=== PATIENT | male | born 1955 | race Caucasian/White ===

== ENCOUNTER → 2018-05-23 | Outpatient (CLI) | payer BC, OTHER | LOC: GMAM 11:04 | PROVIDERS: ATTEND Family Medicine | DX: Z12.5 Encounter for screening for malignant neoplasm of prostate (principal) ==

== ENCOUNTER → 2018-06-25 | Outpatient (CLI) | payer BC, OTHER ==
--- NOTE | 2018-06-25 13:30 | CT ---
CT arthrogram left elbow INDICATION: Elbow pain unable to have MRI TECHNIQUE: Helical CT images through the left elbow post arthrogram with multiplanar reformats This exam was performed according to our departmental dose-optimization program, which includes automated exposure control, adjustment of the mA and/or kV according to patient size and/or use of iterative reconstruction technique. FINDINGS: There is advanced osteoarthrosis of the elbow. There is a large sharply circumscribed cystic-appearing lesion in the proximal ulna extending to the subchondral aspect of the olecranon. This extends to the base of the coronoid process. This lesion measures nearly 3 cm in length and approximately 1.5 cm short axis. This is most likely a large degenerative cyst. There is multifocal synovitis/debris and multiple intra-articular bodies indicating secondary synovial osteochondromatosis. There are bodies in the area of the olecranon and coronoid fossa as well as a large body posterior to the radial head. Marginal osteophytes are noted diffusely. Mild reactive synovitis/debris. Undersurface small cleft in the proximal ulnar collateral ligament. No definite complete capsular or ligamentous disruption No acute fracture or dislocation. IMPRESSION: Advanced osteoarthrosis throughout the left elbow with multiple intra-articular bodies and mild reactive synovitis Large cystic lesion in the proximal ulna most likely a degenerative cyst with nonaggressive margins Electronically signed by: Lance Fermin MD 06/25/2018 1:29 PM ACADEMIC PHYSICIAN
--- NOTE | 2018-06-25 19:39 | RAD ---
EXAM DESCRIPTION: ARTHROGRAM ELBOW, LEFT CLINICAL HISTORY: 62 years Male, ELBOW PAIN. Patient could not have MRI due to metal in the optic globe. COMPARISON: Post - arthrogram CT scan of the left elbow. TECHNIQUE: The procedure was explained to the patient with risks and benefits. The patient understood and gave verbal and written consent. 5 cc of nonionic contrast in one syringe; a contrast mixture of 10 cc nonionic contrast, and 10 mL Xylocaine 1% was prepared in a second syringe. Timeout patient ID protocol was performed. The patient's left elbow was placed on the fluoroscopic table in 90 degrees flexion, in neutral rotation with radius superior. The left olecranon process proximal joint margin was localized by fluoroscopy. The overlying skin was marked and prepped with skin cleanser and sterile drape was applied. Xylocaine 1% anesthetic was given sub-cutaneously and intradermally. Under fluoroscopic visualization, a 25-gauge needle was introduced into the joint, in the plane parallel to the table, just proximal to the olecranon process joint margin. A test injection of 2 cc of the contrast only was performed. An additional 4 cc of the contrast mixture was injected. The patient was transferred to the CT suite for helical reconstruction scanning. There were no immediate complications. Image 1 AP image of the left elbow in 90 degrees flexion. Total fluoroscopic time: 1.2 minutes. Dose: Less than 1 Gy-cm2. FINDINGS: Cystic structure in the proximal olecranon of the ulna partially visualized. Irregular contrast covering of the joint surfaces. Possible loose body superior to the radial head. IMPRESSION: Successful, fluoroscopic-guided arthrogram of the left elbow prior CT scan of the left elbow. Permanent images from this procedure are maintained in the patient's medical record. Electronically signed by: Josh Spear MD 06/25/2018 7:37 PM [employer]
== END ==
LOC: CT 08:45
PROVIDERS: ATTEND Family Medicine
DX: M25.522 Pain in left elbow (principal); M19.022 Primary osteoarthritis, left elbow; M00-M99 Diseases of the musculoskeletal system and connective tissue

== ENCOUNTER → 2018-07-26 | Outpatient (CLI) | payer BC, OTHER | LOC: LAB.O 09:18 | PROVIDERS: ATTEND Orthopaedic Surgery | DX: M25.522 Pain in left elbow (principal) ==

== ENCOUNTER → 2018-08-14 | Outpatient (CLI) | payer BC, OTHER | LOC: LAB.O 16:21 | PROVIDERS: ATTEND Orthopaedic Surgery | DX: Z01.818 Encounter for other preprocedural examination (principal) ==

== ENCOUNTER 2018-08-21 05:29 | Day surgery (SDC) | payer BC, OTHER ==
--- NOTE | 2018-08-19 11:39 | HP ---
CHIEF COMPLAINT: Left hand and arm numbness. HISTORY OF PRESENT ILLNESS: Aleks is a 62-year-old male with a history of numbness in the hand with progressive weakness. He has had no trauma related to this and has had this going on for at least 4 to 5 years. I had spoken to him at that point regarding doing an ulnar nerve transposition, however, he refused that at the time. Because of the progressive nature, he has requested operative intervention. After discussing the risks, benefits and alternatives to operative intervention, he has given informed consent. PAST SURGICAL HISTORY: 1. Bilateral total knee arthroplasty. 2. Appendectomy. 3. Herniorrhaphy. 4. Lipoma removal. MEDICATIONS: 1. Simvastatin. ALLERGIES: NO KNOWN DRUG ALLERGIES. CODE STATUS: Full code. IMMUNIZATIONS: Up to date. FAMILY HISTORY: None pertinent to today's complaint. SOCIAL HISTORY: The patient does not drink, smoke or use any illicit drugs. REVIEW OF SYSTEMS: Negative except as indicated in the History of Present Illness. PHYSICAL EXAMINATION: VITAL SIGNS: Blood pressure 131/99. Pulse 86. Height 6'1". Weight 249 pounds. MENTAL STATUS: The patient is awake, alert, and is able to give a good history and participate in the physical. The patient is oriented to person, place and time. SKIN: Normal tone and turgor. MUSCULOSKELETAL: He has hypothenar atrophy and weakness with abduction of the digits. He has difficulty with extension of the fourth and fifth digits. He has positive Tinel's. He has arthritic deformities at the PIP and DIP of both upper extremities. He lacks about 10 degrees of extension of the elbow secondary to arthritis and has about 120 degrees of flexion. EMG: EMG was performed and shows evidence of advanced ulnar nerve compression. ASSESSMENT: 1. Advanced ulnar nerve compression. PLAN: We have discussed the risks, benefits, and alternatives to operative therapy and the patient has given informed consent. #[id number] [facility]
[2018-08-21] MEDS ORDERED: LACTATED RINGERS 1,000 ML ONE (05:50)
[2018-08-21] MEDS ORDERED: SODIUM CHL 0.9% 100ML MINI-BAG 100 ML IVPB ONE (05:50)
[2018-08-21] MEDS ORDERED: ceFAZolin SODIUM 1 GM VIAL ONE (05:51)
[2018-08-21] MEDS ORDERED: ACETAMINOPHEN IV 1000MG 100 ML ONE (06:36)
[2018-08-21] MEDS ORDERED: fentaNYL CITRATE INJ 50 MCG/ML AMP ONE (06:36)
[2018-08-21] MEDS ORDERED: MIDAZOLAM INJ 2 MG/2 ML VIAL ONE (06:36)
[2018-08-21] MEDS: ceFAZolin SODIUM 1 GM VIAL ONE ×2 (07:33→08:36)
[2018-08-21] MEDS: VANCOMYCIN HCL INJ 1,000 MG VIAL IVPB ONE ×2 (07:33→08:36)
[2018-08-21] MEDS: BUPIVACAINE 0.5% 30 ML VIAL INJ ONE ×2 (07:33→08:33)
[2018-08-21] MEDS: BUPIVACAINE LIPOSOME 13.3 MG/ML VIAL INJ ONE ×2 (07:33→08:33)
[2018-08-21] MEDS ORDERED: HYDROmorphone HCL INJ 2 MG/ML VIAL ONE (08:34)
[2018-08-21] MEDS ORDERED: ONDANSETRON INJ 4 MG/2 ML VIAL ONE (09:18)
[2018-08-21] MEDS ORDERED: PROMETHAZINE HCL INJ 25 MG/ML VIAL ONE (09:34)
[2018-08-21] MEDS ORDERED: PROPOFOL 200 MG/20 ML VIAL IV ONE (10:00)
[2018-08-21] MEDS ORDERED: raNITIdine HCL INJ 25 MG/ML VIAL IV ONE (10:00)
[2018-08-21] MEDS ORDERED: LIDOCAINE 1% 10 ML VIAL INJ ONE (10:00)
[2018-08-21] MEDS ORDERED: DEXAMETHASONE INJ 10 MG/ML VIAL IV ONE (10:00)
[2018-08-21] MEDS ORDERED: KETOROLAC TROMETHAMINE INJ 30 MG/ML VIAL IV ONE (10:00)
[2018-08-21] MEDS ORDERED: METOCLOPRAMIDE HCL INJ 10 MG/2 ML VIAL IV ONE (10:00)
[2018-08-21 11:48] VITALS: BP 133/82; TEMP 96.8; O2SAT 96
--- NOTE | 2018-08-22 09:19 | OP ---
DATE OF PROCEDURE: 08/21/18 PREOPERATIVE DIAGNOSIS: 1. Ulnar nerve entrapment. POSTOPERATIVE DIAGNOSIS: 1. Ulnar nerve entrapment. PROCEDURE: 1. Ulnar nerve transposition. SURGEON: Alli Flower MD. POWDER WORKER TNT: Josh Suarez CST, SA-C. ANESTHESIA: General anesthesia. COMPLICATIONS: None. FINDINGS: Compression of the ulnar nerve across the cubital tunnel. INDICATION: Mr. Beavers has a history of compression of the ulnar nerve which has caused severe symptoms and muscle wasting in the hand. He has had this going on for at least four years. Because of the advanced nature of it, he and I discussed options. At this point, he has elected ulnar nerve transposition. After discussing risks, benefits and alternatives to that, he gave informed consent for ulnar nerve transposition. PROCEDURE: The patient was brought to the Operating Room and placed in the supine position. General anesthesia was induced and the patient's arm was sterilely prepped and draped. An incision was made midway between the medial epicondyle and medial olecranon. Blunt dissection was carried down and the nerve was identified proximally. A vessel loop was passed and the nerve was released from proximal to distal. Once full release had been completed, a subcutaneous area was made on the medial aspect of the elbow. The nerve was transposed and Silk suture was placed in the subcutaneous tissues and it was attached to the medial epicondyle. Following that, the skin was closed with combination of running and interrupted subcuticular stitches. Sterile dressings were placed. The patient was awoken from anesthesia and taken to Recovery. POSTOPERATIVE PLAN: The patient will followup with us in 2 days. We will begin gentle range of motion of the elbow at that time. [facility][id number] [facility]
== END 2018-08-21 11:34 | disposition home or self-care (01) ==
LOC: AMB 05:29
PROVIDERS: ATTEND Orthopaedic Surgery
DX: G56.22 Lesion of ulnar nerve, left upper limb (principal); I10 Essential (primary) hypertension; E66.9 Obesity, unspecified; Z96.653 Presence of artificial knee joint, bilateral; Z79.82 Long term (current) use of aspirin; Z79.899 Other long term (current) drug therapy
CPT/HCPCS: 01710; 36415; 64718; 80307; J0690; J1100; J1170; J1885; J2250; J2405; J2550; J2765; J2780; J3010; J3370; J3490; J7050; J7120

== ENCOUNTER → 2019-10-27 | Outpatient (CLI) | payer BC, OTHER | DX: M79.671 Pain in right foot (principal) ==